=== PATIENT | male | born 1960 | race Caucasian/White ===

== ENCOUNTER 2017-01-12 20:07 | Emergency (ER) | payer OTHER ==
[~2017-01-12 20:07] MED LIST: BRIMONIDINE 0.2% 5 ML OPHT.BTL RTEYE SCH
[2017-01-12 20:24] VITALS: BP 166/105; PULSE 76; RESP 16; TEMP 98.4; O2SAT 97
[2017-01-12] MEDS ORDERED: PROPARACAINE 0.5% 15 ML OPHT DROP ONE (20:29)
[2017-01-12] MEDS ORDERED: FLUORESCEIN SODIUM 1 MG STRIP OP ONE (20:29)
[2017-01-12] MEDS: PROPARACAINE 0.5% 15 ML OPHT DROP OP ONE ×2 (20:30→20:32)
[2017-01-12] MEDS: FLUORESCEIN SODIUM 1 MG STRIP OP ONE ×2 (20:30→20:32)
--- NOTE | 2017-01-12 20:41 | EDPHY ---
H & P Stated Complaint: hit in right eye with water balloon, visual changes Time Seen by Provider: 01/12/17 20:26 HPI/ROS: CHIEF COMPLAINT: Right eye pain HISTORY OF PRESENT ILLNESS: The patient is a 56-year-old man who comes to the emergency department complaining of right-sided eye pain. He states that he was hit with a water balloon in the right eye a few hours ago. He has any increasing pain in feels like he is looking through blinds. He wears glasses and is extremely near sided at baseline. He states that his vision is intact other than the cloudy sensation. No significant pain. No bleeding. No headache , no loss of consciousness REVIEW OF SYSTEMS: Constitutional: denies: chills, fever, recent illness, recent injury EENTM: See HPI Respiratory: denies: cough, shortness of breath Cardiac: denies: chest pain, irregular heart rate, lightheadedness, palpitations Gastrointestinal/Abdominal: denies: abdominal pain, diarrhea, nausea, vomiting, blood streaked stools Genitourinary: denies: dysuria, frequency, hematuria, pain Musculoskeletal: denies: joint pain, muscle pain Skin: denies: lesions, rash, jaundice, bruising Neurological: denies: headache, numbness, paresthesia, tingling, dizziness, weakness Hematologic/Lymphatic: denies: blood clots, easy bleeding, easy bruising Immunologic/allergic: denies: HIV/AIDS, transplant EXAM: GENERAL: Well-appearing, well-nourished and in no acute distress. HEAD: Atraumatic, normocephalic. EYES: Pupils equal round and reactive to light, extraocular movements intact, sclera anicteric, conjunctiva are normal. No corneal abrasions seen when stain with fluorescein. On retinal examination the patient does have maroon red blood on the lateral aspect of the retina. His intra-ocular pressures checked with a Enzo-Pen or averaging at 29. ENT: TMs normal, nares patent, oropharynx clear without exudates. Moist mucous membranes. NECK: Normal range of motion, supple without lymphadenopathy or JVD. LUNGS: Breath sounds clear to auscultation bilaterally and equal. No wheezes rales or rhonchi. HEART: Regular rate and rhythm without murmurs, rubs or gallops. ABDOMEN: Soft, nontender, normoactive bowel sounds. No guarding, no rebound. No masses appreciated. BACK: No CVA tenderness, no spinal tenderness, step-offs or deformities EXTREMITIES: Normal range of motion, no pitting or edema. No clubbing or cyanosis. NEUROLOGICAL: Cranial nerves II through XII grossly intact. Normal speech, normal gait. 5/5 strength, normal movement in all extremities, normal sensation PSYCH: Normal mood, normal affect. SKIN: Warm, dry, normal turgor, no visible rashes or lesions. Source: Patient Exam Limitations: No limitations - Personal History Current Tetanus Diphtheria and Acellular Pertussis (TDAP): No - Medical/Surgical History Hx Asthma: No Hx Chronic Respiratory Disease: No Hx Diabetes: No Hx Cardiac Disease: No Hx Renal Disease: No Hx Cirrhosis: No Hx Alcoholism: Yes Hx HIV/AIDS: No Hx Splenectomy or Spleen Trauma: No Other PMH: depression, back fusion, many orthopedic surgeries - Family History Significant Family History: No pertinent family hx - Social History Smoking Status: Never smoked Alcohol Use: Sober Drug Use: None Constitutional: Initial Vital Signs Temperature (C) 36.9 C 01/12/17 20:22 Heart Rate 76 01/12/17 20:22 Respiratory Rate 16 01/12/17 20:22 Blood Pressure 166/105 H 01/12/17 20:22 O2 Sat (%) 97 01/12/17 20:22 O2 Delivery Mode Room Air Allergies/Adverse Reactions: cephalexin monohydrate [From Keflex] Allergy (Mild, Verified 01/12/13 17:33) adhesive tape Allergy (Verified 03/13/15 19:05) Home Medications: Medication Instructions Recorded Adderall 10 MG (*) 01/12/17 Lexapro 01/12/17 traZODone 01/12/17 Medical Decision Making ED Course/Re-evaluation: I discussed the case with Dr. Hogan from Ophthalmology. He recommends a give the patient Alphagan drops and have him follow up in the office tomorrow morning. Differential Diagnosis: Partial list of the Differential diagnosis considered include but were not limited to; retinal hemorrhage, corneal abrasion, glaucoma and although unlikely based on the history and physical exam, I also considered concussion, TIA, lens dislocation. I discussed these differential diagnoses and the plan with the patient as well as the usual and expected course. The patient understands that the diagnosis is provisional and that in medicine we are not always correct and that further workup is often warranted. Usual and customary warnings were given. All of the patient's questions were answered. The patient was instructed to return to the emergency department should the symptoms at all worsen or return, otherwise to followup with the physician as we discussed. - Data Points Medications Given: Discontinued Medications Brimonidine Tartrate (Alphagan 0.2%) 1 drops RTEYE TID DAYDAY Stop: 07/11/17 21:59 Last Admin: 01/12/17 21:12 Dose: 1 btl Fluorescein Sodium ([id number]) 1 mg OP EDNOW ONE Stop: 01/12/17 20:27 Last Admin: 01/12/17 20:32 Dose: 1 mg Proparacaine HCl (Alcaine 0.5%) 1 drops OP EDNOW ONE Stop: 01/12/17 20:28 Last Admin: 01/12/17 20:32 Dose: 1 drop Departure - Departure Disposition: Home, Routine, Self-Care Clinical Impression: Retinal hemorrhage, right eye Condition: Good Instructions: Brimonidine (Into the eye), Retinal Hemorrhage (ED) Additional Instructions: Call for an appointment. Dr. Hogan is expect during you in the morning. Referrals: BRANDON BURNS [Primary Care Provider] - As per Instructions Tim Hogan MD [Medical Doctor] - 1 day without fail
[2017-01-12] MEDS ORDERED: BRIMONIDINE 0.2% 5 ML OPHT.BTL RTEYE SCH (22:00)
== END 2017-01-12 21:00 | disposition home or self-care (01) ==
DX: S05.91XA Unspecified injury of right eye and orbit, initial encounter (principal); W22.8XXA Striking against or struck by other objects, initial encounter

== ENCOUNTER 2017-02-06 10:13 | Emergency (ER) | payer OTHER ==
[2017-02-06 10:21] VITALS: TEMP 98.4
[2017-02-06] MEDS ORDERED: TDAP ADULT 0.5 ML INJ (BOOSTRIX) IM ONE (10:57)
--- NOTE | 2017-02-06 11:31 | EDPHY ---
H & P Stated Complaint: tripped on cat fell at 0400 hitting/lac to back of head Source: Patient Exam Limitations: No limitations - Personal History Current Tetanus/Diphtheria Vaccine: Unsure - Medical/Surgical History Hx Asthma: No Hx Chronic Respiratory Disease: No Hx Diabetes: No Hx Cardiac Disease: No Hx Renal Disease: No Hx Cirrhosis: No Hx Alcoholism: Yes Hx HIV/AIDS: No Hx Splenectomy or Spleen Trauma: No Other PMH: depression, back fusion, many orthopedic surgeries - Social History Smoking Status: Never smoked HPI/ROS: CHIEF COMPLAINT: Fall, scalp laceration HISTORY OF PRESENT ILLNESS: Patient reports tripping on his CT early this morning around 4:30 a.m.. This caused him to fall back in strike his head on a sharp metal object. He sustained a laceration to the posterior scalp over the occiput. He had no loss of consciousness. He has no headache. No nausea, vomiting or changes in vision. No fever chills. No neck pain or stiffness. No injury to the chest, back, arms or legs. It is minimally painful at rest. Bleeding has stopped with pressure. No other associated complaints or modifying factors. TIME OF INJURY: 4:50 a.m. TETANUS STATUS: Uncertain REVIEW OF SYSTEMS: Ten systems reviewed and are negative unless otherwise noted in the HPI EXAMINATION General Appearance: Alert, no distress Head: normocephalic. Posterior scalp laceration, 3 cm. No exposure of the the galea. No hematoma. No Canas sign. No raccoon eyes. Cardiovascular: Pulses normal throughout. Symmetric radial and DP pulses 2+ Brisk cap refill Neurological: A&O, GCS 15. Cranial nerves 2-12 grossly intact. sensory symmetric, strength symmetric Skin: Warm and dry, no rash. 3 cm laceration to the posterior scalp over the occiput. No bleeding. No foreign body. No exposure of the galea. Extremities: Nontender, no pedal edema DIFFERENTIAL DIAGNOSES: Including but not limited to scalp laceration, complex scalp laceration, intracranial hemorrhage, closed head injury, concussion MDM: 11:00 a.m. Mechanical fall with posterior scalp laceration. No criteria for CT scan of the head based on the [place] CT head rules. Proceed with irrigation and closure of the laceration. 11:30 a.m. Mechanical fall with posterior scalp laceration without complication or evidence of intracranial abnormality. No exposure of the galea. Wound has been irrigated and closed without complication. We discussed wound care. Discharged home stable condition. ED precautions for head injury. ED precautions for wound infection as discussed. PROCEDURE: Laceration repair Consent: Verbal Location: Posterior scalp Length of repair: 3 cm Complexity: Simple Layer involvement: Single Anesthesia: Local, 1% lidocaine with epinephrine, 5 mL Irrigation: Extensive Debridement: None Procedure description: Following good anesthesia, the wound was copiously irrigated. Wound bed was explored and there is no foreign body noted. Wound borders were approximated well with good hemostasis. Tolerated well without complication. Suture/Staple material: 7 elena Wound care: Routine as discussed Suture/Staple removal: 7-10 Days SUTURE STAPLE REMOVAL: 7-10 days ED Precautions: Worsening pain. Erythema, edema, cyanosis, pallor, paresthesia or anesthesia. SUPERVISION: This patient was independently evaluated without direct examination by the attending physician. Case was discussed with attending physician. (Sid Davis) Constitutional: Initial Vital Signs Temperature (C) 36.9 C 02/06/17 10:19 Heart Rate 104 H 02/06/17 10:19 Respiratory Rate 20 02/06/17 10:19 Blood Pressure 156/95 H 02/06/17 10:19 O2 Sat (%) 96 02/06/17 10:19 O2 Delivery Mode Room Air Allergies/Adverse Reactions: cephalexin monohydrate [From Keflex] Allergy (Mild, Verified 02/06/17 10:18) adhesive tape Allergy (Verified 02/06/17 10:18) Home Medications: Medication Instructions Recorded Adderall 10 MG (*) 01/12/17 Lexapro 01/12/17 traZODone 01/12/17 Medical Decision Making ED Course/Re-evaluation: I did not see this patient while he was in the emergency department. However his care was discussed with the PA while the patient was in the department. I agree with treatment plan and management (Camilo Newman) - Data Points Medications Given: Discontinued Medications Diphtheria/Tetanus/Acell Pertussis (Boostrix) 0.5 ml IM .ONCE ONE Stop: 02/06/17 10:58 Last Admin: 02/06/17 11:12 Dose: 0.5 ml Departure - Departure Disposition: Home, Routine, Self-Care Clinical Impression: Laceration of scalp Qualifiers: Encounter type: initial encounter Qualified Code(s): S01.01XA - Laceration without foreign body of scalp, initial encounter Condition: Good Instructions: Laceration (ED), Staple Care (ED) Additional Instructions: 1. Follow up with primary care physician for recheck 2. Return here in 7-10 days for staple removal 3. Return here for signs of infection as discussed 4. Return here for any nausea, vomiting, changes in vision or headache Referrals: BRANDON BURNS [Primary Care Provider] - As per Instructions
[2017-02-06 11:43] VITALS: BP 158/95; PULSE 83; RESP 16; O2SAT 97
== END 2017-02-06 11:43 | disposition home or self-care (01) ==
PROC: 0HQ0XZZ Repair Scalp Skin, External Approach (ICD-10-PCS; principal; 2017-02-06)
DX: S01.01XA Laceration without foreign body of scalp, initial encounter (principal); Z23 Encounter for immunization; W01.198A Fall on same level from slipping, tripping and stumbling with subsequent striking against other object, initial encounter